=== PATIENT | female | born 1980 | race Hispanic/Latino ===

== ENCOUNTER 2020-06-14 06:23 | Outpatient (CLI) | payer BC ==
[2020-06-14 17:06] LABS: SARS-CoV-2 MS2 Positive; SARS-CoV-2 N Gene Negative; SARS-CoV-2 S Gene Negative; SARS-CoV-2 by NAA Not Detected (NotDetected); SARS-CoV-2 orf1ab Negative
== END 2020-06-14 06:24 | disposition home or self-care (01) ==
LOC: LABBT 06:23
PROVIDERS: ATTEND Obstetrics & Gynecology
DX: Z01.812 Encounter for preprocedural laboratory examination (principal); Z20.828 Contact with and (suspected) exposure to other viral communicable diseases
CPT/HCPCS: 87635; U0003

== ENCOUNTER 2020-06-19 10:59 | Day surgery (SDC) | payer BC ==
[2020-06-14 09:45] LABS: Hemoglobin 12.7 g/dL (12.0-16.0); Mean Corpuscular HGB CONC 32.9 G/DL (32.0-36.0); Mean Corpuscular Hemoglobin 26.6 PG (27.0-33.0); Mean Corpuscular Volume 80.9 fl (80.0-100.0); Mean Platelet Volume 10.9 fl (7.4-10.4); Platelet Count 224 10x3/uL (130-400); RBC Distribution Width 14.6 % (11.5-14.5); Red Blood Cell (RBC) Count 4.77 10x6/uL (3.90-5.20); White Blood Cell (WBC) Count 7.4 10x3/uL (4.5-11.0)
[2020-06-14 10:10] LABS: BHCG - Serum Negative (NEGATIVE); Pregs Control Background? CLEAR/WHITE (CLR/WHITE); Pregs Control Bar Appear? YES (CONTROL BAR)
[2020-06-19] MEDS ORDERED: Famotidine/PF 20 mg/2ml Vial ONE (11:21)
[2020-06-19] MEDS ORDERED: Gabapentin 300 MG CAP ONE (11:21)
[2020-06-19] MEDS ORDERED: CeleCOXIB 100 MG CAP ONE (11:21)
[2020-06-19] MEDS ORDERED: Midazolam HCl 2 mg/2 ml Vial ONE (11:48)
[2020-06-19] MEDS ORDERED: Fentanyl 100 MCG/2 ML VIAL ONE ×3 (11:48→15:37)
[2020-06-19] MEDS ORDERED: Bupivacaine PF 0.5% 30 ML VIAL ONE (12:00)
[2020-06-19] MEDS ORDERED: Lidocaine 1% w/Epinephrine 1:100K 20 ML VIAL ONE (12:00)
[2020-06-19] MEDS ORDERED: Ropivacaine 0.2% 550 ML 750 ML NERVE BLCK SCH (12:45)
[2020-06-19] MEDS ORDERED: Ropivacaine HCl/PF 750 ML in Premix Bag 1 BAG NERVE BLCK SCH (13:30)
[2020-06-19] MEDS ORDERED: Promethazine HCl 25 MG/ML VIAL SLOW IVP PRN (14:03)
[2020-06-19] MEDS ORDERED: Ondansetron HCl/PF 4 MG/2 ML Vial IVP PRN (14:03)
[2020-06-19] MEDS ORDERED: Promethazine HCl 25 MG/ML VIAL IM PRN ×2 (14:03→14:43)
[2020-06-19] MEDS ORDERED: Ondansetron PF 4 MG/2 ML Vial ONE (14:21)
[2020-06-19] MEDS ORDERED: PROPOFOL 200 MG/20 ML VIAL ONE (14:21)
[2020-06-19] MEDS ORDERED: Glycopyrrolate 0.2 MG/ML 5 ML SYRINGE ONE (14:21)
[2020-06-19] MEDS ORDERED: Ketorolac Tromethamine 30 MG/ML VIAL ONE (14:21)
[2020-06-19] MEDS ORDERED: Lidocaine 1% PF 5 ML VIAL ONE (14:21)
[2020-06-19] MEDS ORDERED: Rocuronium Bromide 10 MG/ML (10ML VIAL) ONE (14:21)
[2020-06-19] MEDS ORDERED: Dexamethasone 20 MG/5 ML VIAL ONE (14:21)
[2020-06-19] MEDS ORDERED: Simethicone Chewable 80 MG TAB PO PRN (14:43)
[2020-06-19] MEDS ORDERED: diphenhydrAMINE 25 MG CAP PO PRN (14:43)
[2020-06-19] MEDS ORDERED: Zolpidem Tartrate 5 MG TAB PO PRN (14:43)
[2020-06-19] MEDS ORDERED: HYDROcodone/Acetaminophen 5/325 mg Tablet PO PRN ×2 (14:43)
[2020-06-19] MEDS ORDERED: Bisacodyl 10 MG SUPP PR PRN (14:43)
[2020-06-19] MEDS ORDERED: Ondansetron PF 4 MG/2 ML Vial IVP PRN (14:43)
[2020-06-19] MEDS ORDERED: Morphine 4 MG/ML VIAL SLOW IVP PRN (14:43)
[2020-06-19] MEDS ORDERED: Meperidine HCl/PF 25 MG/ML VIAL ONE (15:02)
[2020-06-19] MEDS: Sodium Chloride 0.9% 1,000 ML IV SCH ×2 (17:02→23:05)
[2020-06-19] MEDS: Ketorolac Tromethamine 30 MG/ML VIAL IVP SCH ×2 (17:02→20:37)
--- NOTE | 2020-06-19 20:36 | OP ---
DATE OF PROCEDURE: 06/19/2020 PREOPERATIVE DIAGNOSES: Menorrhagia and fibroid uterus. POSTOPERATIVE DIAGNOSES: Menorrhagia and fibroid uterus. PROCEDURES PERFORMED: Robotic-assisted total laparoscopic hysterectomy with bilateral salpingectomy and ON-Q pump placement. ER REGISTRAR: Kaci Santos PA-C. COMPLICATIONS: None. ESTIMATED BLOOD LOSS: Less than 50 mL. ANESTHESIA: GETA. OPERATIVE FINDINGS: 1. Central obesity. 2. Normal-appearing vagina and cervix. 3. Uterus sounds to 9 cm. 4. Enlarged uterus with serosal versus pedunculated fibroids. 5. Surgical site hemostatic. PROCEDURE IN DETAIL: The patient was taken back to the OR with IV fluids running. Once she was in the OR, she was placed in dorsal supine position and general anesthesia was obtained. Once the patient was asleep, she was placed in low dorsal lithotomy position with her arms tucked at her side. The abdomen and vagina were prepped and draped in normal fashion for gynecologic laparoscopy. A Chauhan catheter was used to drain the bladder and a Lawrence syringe was placed as needed for bladder manipulation during the case. The uterine manipulator was assembled with an 8 cm tip and a 4-cm cup and placed into the uterus and vagina in routine fashion. The surgeon's gloves were changed and attention was turned to the laparoscopic portion of the case. Beginning at the supraumbilical fold, local anesthesia was injected underneath the skin. A 12 mm skin incision was made with a scalpel. Subcutaneous tissue was bluntly dissected and a Veress needle was passed into the peritoneum and the intraabdominal cavity was insufflated without difficulty. Next, the Veress needle was then removed and a 12 mm trocar was placed through the distended abdomen. The laparoscope was placed through the trocar. The patient was placed in Trendelenburg position and the above findings were noted. Next, using a similar technique, the right and left lower quadrant 8-mm robotic trocars and the right upper quadrant 11 mm trocars were placed under direct visualization. After all four trocars were placed, the robotic arms were docked to the patient's bedside and the robotic instruments were placed through the trocars under direct visualization into the pelvis. Beginning on the patient's left side, the left fallopian tube segment was grasped and elevated away from the pelvic sidewall, transected and removed from the operative field. The utero-ovarian ligament on the patient's left side was cauterized and transected. The round ligament on the patient's left side was cauterized, transected, and divided into anterior and posterior leaf. Small amounts of bleeding within the medial leaf of the ligament were controlled with cauterization. The round ligament was dissected down towards the level of the uterine artery. The anterior leaf was dissected down towards the bladder reflection. The uterine artery was skeletonized, cauterized, and transected. The cervicovesical fascia was dissected off the planned colpotomy site and the bladder was dissected away without difficulty. Next, attention was turned to the contralateral side, where the right fallopian tube segment was cauterized, transected, and removed from the operative field. The utero-ovarian ligament on the patient's right side was cauterized and transected. The round ligament on the patient's right side was cauterized, transected, and divided into anterior and posterior leaves and was dissected down towards the level of the uterine artery, which was then skeletonized. The bladder reflection was further dissected away and the bladder flap was completed anteriorly. Beginning posteriorly, the colpotomy was performed using the monopolar scissors. The colpotomy was completed circumferentially. After it was completed, the uterine cervix specimen was retracted into the vagina. The vaginal cuff was copiously irrigated and dried. The areas of bleeding were controlled with cauterization. The adnexa were inspected with no areas of bleeding noted. The left corner of the vaginal cuff had a small area of bleeding, just behind the uterine artery, which was cauterized. The bladder was backfilled with no evidence of bladder compromise during the case. The vaginal cuff was then reapproximated and closed with PDS Stratafix suture in a running fashion. It was closed in 2 layers. After the second layer of closure was complete, the needle was removed from the operative field. The vaginal cuff was copiously irrigated and dry. All surgical areas were copiously irrigated and suctioned dry. The pressure was dropped down to 4 mmHg and the surgical pedicles were inspected closely with no evidence of bleeding noted. Tisseel hemostatic agent was then placed over the vaginal cuff. An ON-Q pump catheter tip was placed through the anterior abdominal wall under direct visualization and the catheter was threaded down into the pelvis and primed. All ports were then removed from the abdomen. The counts were correct. The patient was taken out of Trendelenburg position and the gas was released from the abdomen. The supraumbilical fascia was closed with Vicryl suture. All 4 skin incisions were closed with Monocryl suture and dressed with Dermabond dressing. The patient tolerated the procedure well. The vagina was inspected at the end of the case with no active bleeding noted. The final count was correct. The patient was then cleaned, dried, extubated, and taken to the recovery room in good condition. Job ID: [id number]
[2020-06-20] MEDS: Ketorolac Tromethamine 30 MG/ML VIAL IVP SCH ×2 (02:53→07:59)
[2020-06-20] MEDS: Sodium Chloride 0.9% 1,000 ML IV SCH (07:59)
--- NOTE | 2020-06-20 09:49 | PDOC.EVN ---
Event Note - Event Note Event Note: Pt doing well on POD1. Patient states pain is well controlled. She has been up and ambulatory. She is voiding without difficulty and starting to pass gas. She is eating and drinking well. She denies and CP or SOB. PT VSS. Afebrile. PT sitting up in bed. Well appearing. Normal respiratory effort. Abdomen soft, distended. Skin incisions dry and intact. On-Q pump in place. LEs without edema. PT with normal mentation and neurologically at base line. Labs reviewed. H&H WNL. Pathology pending. PT POD1 S/P CLIFF BS w/ On Q pump. Pt meeting all goals for discharge. Plan to d/c home this am with office follow in 2 weeks. Rx pain medications has already been picked up by patient. Discharge planning and On-Q instructions reviewed with patient. She will call our office for any problems or concerns.
[2020-06-20 11:20] VITALS: BP 120/57; TEMP 98
[2020-06-24] MEDS ORDERED: Ibuprofen 800 MG TAB PO SCH (22:00)
== END 2020-06-20 11:25 | disposition home or self-care (01) ==
LOC: SDC 10:59 → 3SW 16:48 → SDC 06-20 11:25
PROVIDERS: ATTEND Obstetrics & Gynecology
PROC: 0UT94ZZ Resection of Uterus, Percutaneous Endoscopic Approach (ICD-10-PCS; principal; 2020-06-19)
PROC: 0UT74ZZ Resection of Bilateral Fallopian Tubes, Percutaneous Endoscopic Approach (ICD-10-PCS; principal; 2020-06-19)
DX: D25.9 Leiomyoma of uterus, unspecified (principal); N72 Inflammatory disease of cervix uteri; D26.9 Other benign neoplasm of uterus, unspecified; N83.8 Other noninflammatory disorders of ovary, fallopian tube and broad ligament; E66.8 Other obesity; Z68.36 Body mass index [BMI] 36.0-36.9, adult; Z91.040 Latex allergy status
CPT/HCPCS: 84703; 85027; 86850; 86900; 86901; 88307; 88341; 88342; A4306; J0690; J1100; J1885; J2175; J2250; J2405; J2704; J2795; J3010; S0020; S0028

== ENCOUNTER 2022-07-01 13:51 | Outpatient (CLI) | payer BC | END 2022-07-01 13:52 | disposition home or self-care (01) | LOC: ULT 13:51 | PROVIDERS: ATTEND Student in an Organized Health Care Education/Training Program | DX: R74.8 Abnormal levels of other serum enzymes (principal); Z90.49 Acquired absence of other specified parts of digestive tract | CPT/HCPCS: 76705 ==